=== PATIENT | female | born 1975 | race Caucasian/White ===

== ENCOUNTER 2016-05-07 00:31 | Emergency (ER) | payer OTHER ==
[~2016-05-07] VITALS: Ht 170.2 cm; Wt 100.0 kg
[~2016-05-07 00:31] MED LIST: ASPI81TA45 PO; ATOR20TA PO; CITA20 PO; CYCL-36 PO; MACR100C PO; NICO14DI18 TD; NICO21DI24 TD; NICO7DIS18 TD; VARE1 PO; VARE1PAK3 PO; [UNRECOGNIZED DRUG - OTHER] PO
[2016-05-07 00:36] VITALS: BP 183/116; PULSE 110; RESP 18; TEMP 98.1; O2SAT 98
[2016-05-07] MEDS ORDERED: LORazepam 2 MG/ML VIAL ONE (01:03)
[2016-05-07] MEDS ORDERED: PROM25TA5 PO (07:01)
[2016-05-07] MEDS ORDERED: BUTA1CAP PO (07:01)
== END 2016-05-07 00:55 | disposition left against medical advice (07) ==
LOC: NED 00:31
DX: R68.89 Other general symptoms and signs (principal)
CPT/HCPCS: 99281; J2060

== ENCOUNTER 2016-05-07 01:20 | Emergency (ER) | payer OTHER ==
[~2016-05-07] VITALS: Ht 170.2 cm; Wt 97.1 kg
[2016-05-07 01:30] VITALS: BP 152/112; PULSE 111; TEMP 98.1; O2SAT 97
[2016-05-07] MEDS ORDERED: SODIUM CHLOR 0.9% 1000 ML INJ 1,000 ML IV ONE (05:57)
[2016-05-07] MEDS ORDERED: PROCHLORPERAZINE INJ 10 MG/2 ML VIAL IVP ONE (06:00)
[2016-05-07] MEDS ORDERED: SODIUM CHLORIDE 0.9% FLUSH 5 ML FLUSH IVF PRN (06:00)
[2016-05-07] MEDS ORDERED: KETOROLAC TROMETHAMINE 30 MG/ML (IVP) VIAL IVP ONE (06:00)
--- NOTE | 2016-05-07 06:11 | PD ---
HPI Chief Complaint: Headache Time Seen by Provider: 05:52 Travel History International Travel<30 days: No Contact w/Intl Traveler<30days: No Traveled to known affect area: No History of Present Illness HPI The patient is a 40-year-old female with a history of migraine headaches who complains of her typical, gradual onset of migraine headache, only worse this time with nausea and vomiting. She denies any focal neurologic change. She does have photophobia/phonophobia. Last time she had a headache like this was in 2010 and she was seen by Dr. Gaytan. The CT scan at that time was normal. The patient is a one pack-a-day smoker. She denies any exacerbating factors and states her severity is severe. She denies any alleviating factors. PFS Past Medical History Headaches: Yes (chronic headaches usually takes excedrin) Social History Alcohol Use: No Tobacco Use: Yes (1 ppd) Substance Use: No Allergies-Medications (Allergen,Severity, Reaction): Coded Allergies: Erythromycin (Verified Allergy, Severe, Swelling, 05/07/16) Reported Meds & Prescriptions Reported Meds & Active Scripts Active Review of Systems Except as stated in HPI: all other systems reviewed are Neg Physical Exam Narrative GENERAL: The patient is alert, oriented 3 in moderate to severe distress with her headache. Her vital signs show heart rate of 111 with blood pressure 152/ 112. SKIN: Warm and dry. HEAD: Atraumatic. Normocephalic. EYES: Pupils equal and round. No scleral icterus. No injection or drainage. ENT: No nasal bleeding or discharge. Mucous membranes pink and moist. NECK: Trachea midline. No JVD. There is no meningismus and the patient flexes neck fully so that the chin touches the chest. CARDIOVASCULAR: Regular rate and rhythm. No murmur appreciated. RESPIRATORY: No accessory muscle use. Clear to auscultation. Breath sounds equal bilaterally. GASTROINTESTINAL: Abdomen soft, non-tender, nondistended. Hepatic and splenic margins not palpable. MUSCULOSKELETAL: No obvious deformities. No clubbing. No cyanosis. No edema. NEUROLOGICAL: Awake and alert. No obvious cranial nerve deficits. Motor grossly within normal limits. Normal speech. PSYCHIATRIC: Appropriate mood and affect; insight and judgment normal. Data Data Last Documented VS Vital Signs Date Time Temp Pulse Resp B/P Pulse Ox O2 Delivery O2 Flow Rate FiO2 05/07/16 06:30 96 Room Air 05/07/16 06:30 100 18 120/80 05/07/16 01:30 98.1 Orders Complete Blood Count With Diff (05/07/16 05:57) Basic Metabolic Panel (Bmp) (05/07/16 05:57) Beta Hcg (Quant/Titer) (05/07/16 05:57) Ecg Monitoring (05/07/16 05:57) Iv Access Insert/Monitor (05/07/16 05:57) Oximetry (05/07/16 05:57) Sodium Chloride 0.9% Flush (Ns Flush) (05/07/16 06:00) Ketorolac Inj (Toradol Inj) (05/07/16 06:00) Prochlorperazine Inj (Compazine Inj) (05/07/16 06:00) Sodium Chlor 0.9% 1000 Ml Inj (Ns 1000 M (05/07/16 05:57) Diphenhydramine Inj (Benadryl Inj) (05/07/16 06:45) Labs Laboratory Tests Test 05/07/16 06:20 White Blood Count 12.4 TH/MM3 Red Blood Count 4.89 MIL/MM3 Hemoglobin 14.5 GM/DL Hematocrit 43.3 % Mean Corpuscular Volume 88.5 FL Mean Corpuscular Hemoglobin 29.6 PG Mean Corpuscular Hemoglobin 33.5 % Concent Red Cell Distribution Width 12.8 % Platelet Count 283 TH/MM3 Mean Platelet Volume 9.6 FL Neutrophils (%) (Auto) 67.0 % Lymphocytes (%) (Auto) 27.3 % Monocytes (%) (Auto) 4.9 % Eosinophils (%) (Auto) 0.4 % Basophils (%) (Auto) 0.4 % Neutrophils # (Auto) 8.4 TH/MM3 Lymphocytes # (Auto) 3.4 TH/MM3 Monocytes # (Auto) 0.6 TH/MM3 Eosinophils # (Auto) 0.0 TH/MM3 Basophils # (Auto) 0.0 TH/MM3 CBC Comment DIFF FINAL Differential Comment Sodium Level 141 MEQ/L Potassium Level 3.7 MEQ/L Chloride Level 107 MEQ/L Carbon Dioxide Level 24.1 MEQ/L Anion Gap 10 MEQ/L Blood Urea Nitrogen 5 MG/DL Creatinine 0.63 MG/DL Estimat Glomerular Filtration 105 ML/MIN Rate Random Glucose 97 MG/DL Calcium Level 8.5 MG/DL Human Chorionic Gonadotropin, LESS THAN 1 Quant MIU/ML MDM Medical Decision Making Medical Screen Exam Complete: Yes Emergency Medical Condition: Yes Medical Record Reviewed: Yes Differential Diagnosis Migraine headache, viral syndrome, subarachnoid hemorrhagehighly unlikely, meningitishighly unlikely, Narrative Course It is now 0700 and the patient's headache is only a 2/10. Her nausea is resolved. Impression: Migraine headache Plan: The patient will be given Fioricet and Phenergan for headache pain and nausea. She is to follow-up with a primary care physician. Additional Instructions: As you already know, rest and sleep are important for migraine headaches. I told she can do this. Fioricet and Phenergan are prescribed for headache pain and nausea respectively. Do not drink alcohol or drive on these medications. Follow-up with a primary care physician next week. Med/Other Pt SpecificInfo: Prescription(s) given Scripts Promethazine (Phenergan)25 Mg Tab25 Mg PO Q6H PRN (Nausea/Vomiting) #30 TAB Ref 0 Prov:Fantasma Estevez MD 05/07/16 Oiepxelluf-Fosmunntbtjpj-Ryojacqu (Fioricet)50-300-40 Mg Cap1-2 Cap PO Q6H PRN ( HEADACHE) #30 CAP Ref 0 Prov:Fantasma Estevez MD 05/07/16 Disposition: 01 DISCHARGE HOME Condition: Stable Fantasma Estevez MD May 07, 2016 06:11
[2016-05-07 06:26] LABS: AUTOMATED NEUTROPHIL # 8.4 TH/MM3 (1.8-7.7); BASOPHIL % 0.4 % (0.0-2.0); EOSINOPHIL % 0.4 % (0.0-4.0); HEMATOCRIT 43.3 % (35.0-46.0); HEMO FLAGS DIFF FINAL; LYMPH % 27.3 % (9.0-44.0); LYMPHOCYTE # 3.4 TH/MM3 (1.0-4.8); MEAN CELL VOLUME 88.5 FL (80.0-100.0); MEAN CORPUSCULAR HEMOGLOBIN 29.6 PG (27.0-34.0); MEAN CORPUSCULAR HGB CONC 33.5 % (32.0-36.0); MONO % 4.9 % (0.0-8.0); PLATELET COUNT 283 TH/MM3 (150-450); RED BLOOD COUNT 4.89 MIL/MM3 (4.00-5.30); RED CELL DISTRIBUTION WIDTH 12.8 % (11.6-17.2); WHITE BLOOD COUNT 12.4 TH/MM3 (4.0-11.0)
[2016-05-07 06:30] VITALS: BP 120/80; PULSE 100; RESP 18; O2SAT 96
[2016-05-07 06:34] LABS: CHLORIDE 107 MEQ/L (98-107); POTASSIUM 3.7 MEQ/L (3.5-5.1); SODIUM (NA) 141 MEQ/L (136-145)
[2016-05-07 06:37] LABS: ANION GAP 10 MEQ/L (5-15); BICARBONATE 24.1 MEQ/L (21.0-32.0); BLOOD UREA NITROGEN 5 MG/DL (7-18)
[2016-05-07 06:40] LABS: GLOMERULAR FILTRATION RATE 105 ML/MIN (>89)
[2016-05-07 06:45] LABS: BETA HCG QUANT LESS THAN 1 MIU/ML (0-5)
[2016-05-07] MEDS ORDERED: diphenhydrAMINE HCL 50 MG/ML VIAL IVP ONE (06:45)
[2016-05-07] MEDS ORDERED: BUTA1CAP PO (07:01)
[2016-05-07] MEDS ORDERED: PROM25TA5 PO (07:01)
== END 2016-05-07 07:36 | disposition home or self-care (01) ==
LOC: PHED 01:20
DX: G43.909 Migraine, unspecified, not intractable, without status migrainosus (principal); H53.149 Visual discomfort, unspecified; F17.210 Nicotine dependence, cigarettes, uncomplicated
CPT/HCPCS: 80048; 84702; 85025; 96361; 96374; 96375; 99283; J0780; J1200; J1885; J7030

== ENCOUNTER 2017-08-23 00:07 | Emergency (ER) | payer MEDICAID, OTHER ==
[~2017-08-23] VITALS: Ht 170.2 cm; Wt 88.5 kg
[~2017-08-23 00:07] MED LIST changes: -ASPI81TA45 PO; -ATOR20TA PO; +BUTA1CAP PO; -CITA20 PO; -CYCL-36 PO; -MACR100C PO; -NICO14DI18 TD; -NICO21DI24 TD; -NICO7DIS18 TD; +PROM25TA5 PO; -VARE1 PO; -VARE1PAK3 PO; -[UNRECOGNIZED DRUG - OTHER] PO
[2017-08-23 00:16] VITALS: BP 153/88; PULSE 79; RESP 16; TEMP 98.4; O2SAT 100
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
[2017-08-23] MEDS ORDERED: IBUPROFEN 600 MG TAB PO ONE (00:30)
[2017-08-23] MEDS ORDERED: IBUP-232 PO (00:38)
[2017-08-23] MEDS ORDERED: CYCL5TAB PO (00:38)
[2017-08-23] MEDS ORDERED: CYCLOBENZAPRINE HCL 10 MG TAB PO ONE (00:45)
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
== END 2017-08-23 02:00 | disposition home or self-care (01) ==
LOC: NEPD 00:07
DX: M79.1 Myalgia (principal); F12.90 Cannabis use, unspecified, uncomplicated; V43.52XA Car driver injured in collision with other type car in traffic accident, initial encounter
CPT/HCPCS: 71046; 73030; 99284